=== PATIENT | female | born 1960 | race Hispanic/Latino ===

== ENCOUNTER 2018-11-21 13:12 | Emergency (ER) | payer OTHER, MEDICARE ==
[~2018-11-21] VITALS: Ht 152.4 cm; Wt 61.7 kg
--- OUTSIDE RECORDS SUMMARY | 2018-11-21 13:14 | XMS REPORT ---
Author Author [facility] Address Unknown Phone Unavailable Care Team Providers Care Inside Wireman Name Role Phone Unavailable Unavailable Payers Payer Name Policy Type Policy Number Effective Date Expiration Date Problems This patient has no known problems. Allergies, Adverse Reactions, Alerts Allergy Name Allergy Type Status Severity Reaction(s) Onset Date Inactive Date Treating Clinician Comments No Known Allergies DA Active U 2018-07-05 00:00:00 Medications This patient has no known medications.
[2018-11-21] MEDS ORDERED: SODIUM CHLORIDE 0.9% 1000ML 1,000 ML IV STA (13:25)
[2018-11-21] MEDS ORDERED: ONDANSETRON HCL INJ 2MG/ML 2ML 2 MG/ML VIAL IV ONE (14:00)
[2018-11-21] MEDS ORDERED: MORPHINE SULFATE INJ 4 MG/ML INJ 1ML IV ONE (14:00)
[2018-11-21 14:05] LABS: BILIRUBIN,URINE NEGATIVE (NEGATIVE); CLARITY,URINE HAZY (CLEAR); COLOR,URINE STRAW (YELLOW); KETONES,URINE NEGATIVE (NEGATIVE); LEUKOCYTE ESTERASE ,URINE TRACE (NEGATIVE); NITRITE,URINE NEGATIVE (NEGATIVE); PROTEIN,URINE DIPSTICK TRACE (NEGATIVE); URINE UROBILINOGEN 0.2 mg/dL (0.2 - 1)
[2018-11-21 14:13] LABS: BASOPHILS # (AUTO) 0.1 (0.0-0.1); BASOPHILS % 0.6 % (0.0-1.0); EOSINOPHILS # (AUTO) 0.2 (0.0-0.4); EOSINOPHILS % 1.7 % (0.0-6.0); HEMOGLOBIN 11.1 g/dL (12.0-16.0); LYMPHOCYTES # (AUTO) 1.3 (1.0-3.2); LYMPHOCYTES % 13.5 % (18.0-39.1); MEAN CORPUSCULAR HEMOGLOBIN 29.1 pg (28-32); MEAN CORPUSCULAR HGB CONC 31.7 g/dL (31-35); MEAN CORPUSCULAR VOLUME 91.9 fL (81-99); MONOCYTES # (AUTO) 0.6 (0.2-0.8); MONOCYTES % 6.7 % (4.4-11.3); NEUTROPHILS # (AUTO) 7.3 (2.1-6.9); NEUTROPHILS % 77.3 % (38.7-80.0); PLATELET COUNT 261 x10e3/uL (140-360); RED BLOOD COUNT 3.81 x10e6/uL (3.6-5.1); RED CELL DISTRIBUTION WIDTH 12.9 % (11.7-14.4)
[2018-11-21 14:16] LABS: BACTERIA,URINE MODERATE /HPF; EPITHELIAL CELLS,URINE RARE /LPF; RBC,URINE >50 /HPF (0-5)
[2018-11-21 14:34] LABS: ALBUMIN 3.4 g/dL (3.5-5.0); ALBUMIN/GLOBULIN RATIO 0.8 (0.8-2.0); ANION GAP 14.1 mmol/L (8-16); CALCIUM 9.8 mg/dL (8.4-10.2); CREATININE, SERUM 1.05 mg/dL (0.57-1.11); POTASSIUM 4.1 mmol/L (3.5-5.1)
[2018-11-21] MEDS ORDERED: MEROPENEM 1GRAM 1 GM in SODIUM CHLORIDE 0.9% 100 ML 100 ML IV ONE (15:00)
[2018-11-21] MEDS ORDERED: MEROPENEM 1GM 100 ML IV ONE (15:15)
[2018-11-21 15:26] LABS: INR 0.91; PROTHROMBIN TIME 13.1 seconds (11.9-14.5)
[2018-11-21 15:27] LABS: PARTIAL THROMBOPLASTIN TIME 31.9 seconds (23.8-35.5)
--- NOTE | 2018-11-21 16:14 | Diagnostic Imaging Report ---
EXAMINATION: CT of the abdomen and pelvis with contrast. TECHNIQUE: Spiral CT images of the abdomen and pelvis were performed from the lung bases to the lesser trochanters before and after the intravenous administration of 100 cc of Isovue-370 per renal mass protocol. Coronal and sagittal reformatted images were obtained. COMPARISON: None available CLINICAL HISTORY: Known renal mass, hematuria DISCUSSION: ABDOMEN/PELVIS: LOWER THORAX:Subsegmental atelectasis in the dependent lower lobes. No pulmonary mass lesion. HEPATOBILIARY: No focal hepatic lesions. No intra-or extrahepatic biliary ductal dilation. The gallbladder is normal. SPLEEN: No splenomegaly. PANCREAS: No focal masses or ductal dilatation. ADRENALS: No adrenal nodules. KIDNEYS/URETERS: There is a solid, heterogeneously enhancing though predominantly in hypoattenuating solid mass replacing the majority of the lower pole of the right kidney and measuring approximately 6 cm craniocaudal by 6.8 cm oblique transverse x 4.9 cm oblique AP (see series 4 image 101). There is no filling defect within the right renal vein on venous phase imaging. The infrarenal IVC is poorly visualized secondary to extensive centrally necrotic retroperitoneal masses, the largest of which measures 9.5 cm craniocaudal x 3.4 cm oblique AP x 6 cm oblique transverse which continues along the right common iliac artery and vein. Conglomerate left periaortic lymphadenopathy is also noted, measuring approximately 8.2 cm craniocaudal x 2.6 cm oblique AP x 3.3 cm oblique transverse. The right lower pole collecting system is obliterated on excretory phase images. The right upper pole collecting system and ureter are unremarkable, as is the left collecting system and ureter. 7.3 cm exophytic cyst projecting from the upper pole of the left kidney without significant enhancement, septation, or solid component. Adjacent 2.2 cm exophytic left upper pole cyst, also without significant enhancement. No calculi or hydronephrosis. PELVIC ORGANS/BLADDER: Urinary bladder is well distended with heterogeneous contents on excretory phase images, related to excreted contrast material. Uterus is anteflexed and appears normal. No adnexal mass. PERITONEUM/RETROPERITONEUM: No ascites. No pneumoperitoneum. LYMPH NODES: No pelvic or mesenteric lymphadenopathy. VESSELS: Right renal artery is encased by retroperitoneal lymph node conglomerate. IVC is anteriorly displaced at the level of the renal vein inflow. Portal vein, splenic vein, and central superior mesenteric vein are patent. GI TRACT: The large bowel is notable for scattered sigmoid diverticula without wall thickening or adjacent inflammatory change. the appendix is normal. There is no small bowel dilatation to suggest obstruction. BONES AND SOFT TISSUE: Postsurgical changes of the lumbar spine. Bone island in the right acetabular roof. Degenerative anterolisthesis of L5 over S1. No focal soft tissue abnormalities. IMPRESSION: Large solid heterogeneous mass replacing the majority of the lower pole of the right kidney highly concerning for renal cell carcinoma. Right retroperitoneal mass is felt to represent metastatic lymphadenopathy with displacement rather than invasion of the inferior vena cava, given absence of tumor thrombus within the right renal vein. There is also metastatic left retroperitoneal lymphadenopathy. Left renal cysts. Large bowel diverticulosis without evidence of diverticulitis. Signed by: Dr. Kirill Reed M.D. on 11/21/2018 4:10 PM
[2018-11-21 17:20] VITALS: BP 124/70
[2018-11-21] MEDS ORDERED: IOPAMIDOL 370 MG/ML 200 ML INFUS..BTL INJ ONE (20:13)
[2018-11-21] MEDS ORDERED: SODIUM CHLORIDE 0.9% 50ML 50 ML ONE (20:13)
== END 2018-11-21 17:35 | disposition home or self-care (01) ==
LOC: ER 13:12
DX: R30.0 Dysuria (principal); R10.31 Right lower quadrant pain; N30.91 Cystitis, unspecified with hematuria; I10 Essential (primary) hypertension; E11.9 Type 2 diabetes mellitus without complications; F41.9 Anxiety disorder, unspecified; F32.9 Major depressive disorder, single episode, unspecified
CPT/HCPCS: 36415; 74178; 80053; 81001; 83735; 85025; 85610; 85730; 87086; 99284; J2185; J2270; J7030; Q9967; J2405

== ENCOUNTER → 2018-11-28 | Outpatient (CLI) | payer OTHER, MEDICARE ==
--- NOTE | 2018-11-28 14:39 | Diagnostic Imaging Report ---
Bone Scan, delayed phase INDICATION: 58 F with right renal mass suspect for cancer COMPARISON: CT abdomen/pelvis 11/21/2018 REPORT: Approximately 3 hours following intravenous administration of 25 mCi of Tc-99m MDP, delayed total body images in the anterior and posterior projections and selected spot images were obtained. Focal areas of decreased tracer activity are identified in T12 and S1. Otherwise, distribution of tracer activity is unremarkable throughout the skeletal system. The lower two-thirds of the right kidney are obscured, consistent with known renal mass. No abnormal accumulation of tracer is seen in the renal collecting systems. IMPRESSION: Lytic lesions at T12 and S1 are suspect for bone metastases although no correlative findings are seen on CT from 11/21/2018. Close attention on follow-up studies. Signed by: Dr. Cathy Braden M.D. on 11/28/2018 2:36 PM
== END ==
LOC: NM 09:19
PROVIDERS: ATTEND Urology
DX: D41.00 Neoplasm of uncertain behavior of unspecified kidney (principal); R31.0 Gross hematuria
CPT/HCPCS: 78306; A9503

== ENCOUNTER → 2018-12-02 | Outpatient (CLI) | payer MEDICARE, OTHER ==
[~2018-12-02] MED LIST: FENTANYL CITRATE/PF 100MCG/2 ML INJ ONE; GELATIN SPONGE 12-7MM ONE; MIDAZOLAM HCL 2 MG/2 ML VIAL ONE; SODIUM CHLORIDE 0.9% 500ML 500 ML ONE
--- NOTE | 2018-12-02 15:04 | Diagnostic Imaging Report ---
PROCEDURE: CT-guided right renal biopsy and CT-guided periaortic lymph node biopsy. Medications: Versed 1 mg intravenous, Fentanyl 75 mcg intravenous. The patient's vital signs, including pulse oximetry, were continuously monitored by the interventional radiology nurse. Technique: Patient was placed prone in the CT scanner. Preliminary CT images were performed in the axial projection. Appropriate window for biopsy of the lower pole right renal mass was determined. Utilizing full sterile barrier technique local anesthesia with 1% Xylocaine was performed. A 19-gauge guiding needle was then advanced into the lower pole of the right kidney. A total of 3 FNAs utilizing 20-gauge Chiba needles was accomplished. A total of 5 core biopsies utilizing 20-gauge 2 cm throw core biopsy gun was accomplished. Specimens were evaluated by the Pathologist in attendance determining that the specimen was adequate for diagnosis. Gelfoam was instilled through the guiding needle prior to removal to aid in hemostasis. Attention then directed to the adjacent periaortic adenopathy. Utilizing the same size guiding needle a total of 3 core biopsies of the periaortic/retroperitoneal adenopathy was accomplished. Single touch prep was performed and evaluated by the Pathologist. Gelfoam was also instilled through the guiding needle prior to removal to aid in hemostasis. Total DLP: 924.63 mGy-cm; active dose reduction parameters were utilized. Comparison: CT scan of the abdomen dated 11/21/2018 Contrast used: None Estimated blood loss: Minimal. Complications: No immediate. Grafts or implants: None The patient tolerated the procedure well without immediate complication. IMPRESSION: CT-guided biopsy of a right lower pole renal mass and adjacent retroperitoneal adenopathy. Signed by: Dr. Navjot Boothe DO on 12/02/2018 3:01 PM
== END ==
LOC: OR 09:15 → RAD 09:30 → EDSTATUS 10:00
PROVIDERS: ATTEND Urology
DX: R31.0 Gross hematuria (principal); D41.00 Neoplasm of uncertain behavior of unspecified kidney; R19.09 Other intra-abdominal and pelvic swelling, mass and lump
CPT/HCPCS: 38505; 50200; 88112; 88172; 88173; 88304; 88305; J2250; J7040; 99152; 99153

== ENCOUNTER → 2018-12-14 | Day surgery (SDC) | payer MEDICARE, OTHER ==
[~2018-12-14] MED LIST changes: +BELLADONNA/OPIUM 30 MG SUPP RC ONE; +BUSPIRONE HCL5 MG PO; +CEFTRIAXONE SOD 1 GM/NS 50 ML 50 ML IV ONE; +CELEBREX100 MG PO; +CRESTOR10 MG; +DEXAMETHASONE SOD PHOS INJ 4 MG/ML VIAL ONE; +ESCITALOPRAM OXA5 MG; -GELATIN SPONGE 12-7MM ONE; +IBUPROFEN100 M1; +IBUPROFEN200 MG PO; +IOPAMIDOL 610MG/1ML 300 MG/ML VIAL IV ONE; +JANUMET 50-1,01 EACH; +JARDIANCE; +LIDOCAINE HCL 2% LOCAL INJ 5 ML SDV VIAL INJ ONE; +LISINOPRIL2.5 MG PO; +MEPERIDINE HCL INJ 25 MG/ML VIAL ONE; +ONDANSETRON HCL INJ 2MG/ML 2ML 2 MG/ML VIAL ONE; +PROPOFOL IV EMULSION 10 MG/ML 20 ML VIAL ONE; +SEVOFLURANE INHAL SOLN 250 ML PEN BTL ONE; -SODIUM CHLORIDE 0.9% 500ML 500 ML ONE; +TRAZODONE HCL50 MG PO
[2018-12-14 13:00] VITALS: BP 140/73
--- NOTE | 2019-01-02 08:21 | Operative Report ---
DATE OF PROCEDURE: 12/14/2018 SURGEON: Luis Del Castillo MD PREOPERATIVE DIAGNOSIS: Gross hematuria. POSTOPERATIVE DIAGNOSES: 1. Gross hematuria. 2. Grade 2 cystocele. 3. Urethral hypermobility. 4. Atrophic (senile) vaginitis. OPERATIONS PERFORMED: 1. Cystourethroscopy with bilateral ureteral catheterization and retrograde ureteropyelography. 2. Interpretation of retrograde ureteropyelography. 3. Supervision of fluoroscopy, no radiologist was present. 4. Pelvic examination under anesthesia. ANESTHESIA: General. COMPLICATIONS: None. CLINICAL SUMMARY: Gail Alaniz is a 58-year-old woman with recurrent gross hematuria. The patient has large right renal mass as well as two large retroperitoneal masses. The patient underwent biopsy. She was brought to the operating room for the above procedures. She is aware of the risks of bleeding, infection, injury to adjacent structures, need for additional procedures and elected to proceed. PROCEDURE IN DETAIL: Informed consent was verified. Gail Alaniz was preoperatively identified, taken to the operating room, placed on the cystoscopy table in supine position. Anesthesia was uneventfully begun. The patient was then carefully and gently repositioned in dorsal lithotomy position with all pressure points well padded. Her genitalia were prepared and draped in usual sterile fashion. The 22.5-Latvian cystoscope sheath with the obturator in place was atraumatically inserted in the patient's urethra and bladder was drained. Panendoscopy revealed grade 1 trabeculations, but no tumors, no stones, and or diverticula. Normally positioned and configured ureteral orifices were identified. An 8-Latvian catheter was used to cannulate each ureter and retrograde pyelograms were performed. Interpretation of Retrograde Ureteropyelography: Contrast was instilled in retrograde fashion bilaterally. There were no tumors, no stones, and no diverticula noted in the left hand side. On the right-hand side, there was no filling of the lower pole calyx. Except for the lower pole calyx, there were no tumors, no stones, and no diverticula that could be appreciated. There was distortion of the collecting system on the right-hand side consistent with a mass effect. Nevertheless, unobstructed drainage was observed bilaterally fluoroscopically. The patient's bladder was drained. The cystoscope was withdrawn. Pelvic examination under anesthesia revealed grade 2 cystocele with urethral hypermobility and atrophic vaginitis. No abnormal pelvic masses could be appreciated and there are no suspicious mucosal lesions that were obvious. The patient was then uneventfully reversed from anesthesia and taken to recovery room in stable condition. There were no complications to the procedure. The patient tolerated the procedure well. Plans will be to follow the patient up in the office at which point in time, we will have a lengthy discussion about the fact that she has metastatic transitional cell carcinoma. Luis MD Magdalene [place]/MODL /[id number] cc: Brigitte Meek MD
== END | disposition home or self-care (01) ==
LOC: OR 08:55
PROVIDERS: ATTEND Urology
DX: R31.0 Gross hematuria (principal); D41.01 Neoplasm of uncertain behavior of right kidney; R19.09 Other intra-abdominal and pelvic swelling, mass and lump; N32.89 Other specified disorders of bladder; N39.0 Urinary tract infection, site not specified; R35.1 Nocturia; N81.10 Cystocele, unspecified; N36.41 Hypermobility of urethra; N95.2 Postmenopausal atrophic vaginitis; I10 Essential (primary) hypertension; E11.9 Type 2 diabetes mellitus without complications; F41.9 Anxiety disorder, unspecified; F17.200 Nicotine dependence, unspecified, uncomplicated; Z01.810 Encounter for preprocedural cardiovascular examination
CPT/HCPCS: 36415; 52005; 74420; 82948; 93005; J0696; J1100; J2001; J2175; J2250; J2405; J2704; Q9967